=== PATIENT | male | born 1975 | race American Indian/Alaskan Native ===

== ENCOUNTER 2021-09-10 16:43 | Emergency (ER) | payer MEDICAID, OTHER ==
[2021-09-10 18:52] VITALS: BP 132/92
[2021-09-11 01:20] LABS: Basophils % (Auto) 0.1 % (0.0-1.8); Hematocrit 46.4 % (35.5-45.6); Hemoglobin 15.2 gm/dl (11.8-15.2); Lymphocytes # (Auto) 1.1 K/mm3 (1.2-5.4); Lymphocytes % (Auto) 6.1 % (13.4-35.0); Mean Corpuscular HGB Conc 33 % (32-34); Mean Corpuscular Volume 93 fl (84-94); Monocytes # (Auto) 2.1 K/mm3 (0.0-0.8); Monocytes % (Auto) 12.1 % (0.0-7.3); Platelet Count 230 K/mm3 (140-440); Red Blood Count 4.98 M/mm3 (3.65-5.03); Red Cell Distribution Width 15.1 % (13.2-15.2)
[2021-09-11 01:32] LABS: Alanine Aminotransferase 52 units/L (7-56); Albumin 4.3 g/dL (3.9-5); BUN/Creatinine Ratio 29; Blood Urea Nitrogen 29 mg/dL (9-20); Calcium 9.6 mg/dL (8.4-10.2); Hemolysis Index 12
== END 2021-09-11 16:02 | disposition left against medical advice (07) ==
LOC: ED 16:43
DX: N39.0 Urinary tract infection, site not specified (principal); Z53.21 Procedure and treatment not carried out due to patient leaving prior to being seen by health care provider
CPT/HCPCS: 36415; 80053; 85025